=== PATIENT | male | born 1960 | race Caucasian/White ===

== ENCOUNTER 2017-07-06 21:53 | Observation (INO) | payer MEDICARE ==
[2017-07-06 22:36] LABS: INR-International Normal Ratio 0.9; PTT 27.2 SEC (22.9-36.1); Prothrombin Time 12.4 SEC (12.0-14.7)
[2017-07-06 22:42] LABS: #Basophils 0.1 thou/uL (0.0-0.2); #Eosinphils 0.2 thou/uL (0.0-0.7); #Lymphocytes 2.6 thou/uL (1.20-3.40); #Neutrophils 4.6 thou/uL (1.40-6.50); %Basophils 0.7 % (0.0-1.0); %Eosinophils 2.9 % (0.0-10.0); %Lymphocytes 30.3 % (21.0-51.0); %Monocytes 11.5 % (0.0-10.0); %Neutrophils 54.6 % (42.0-75.0); Hemoglobin 13.7 g/dL (14.0-18.0); Mean Corpuscular HGB CONC 34.7 g/dL (32.0-36.0); Mean Corpuscular Hemoglobin 34.9 pg (27.0-31.0); Mean Platelet Volume 7.2 fL (7.4-10.4); Platelet Count 243 thou/uL (130-400); RBC Distribution Width 11.1 % (11.5-14.5); Red Blood Cell (RBC) Count 3.93 mill/uL (4.70-6.10); White Blood Cell (WBC) Count 8.5 thou/uL (4.8-10.8)
[2017-07-06 22:52] LABS: ALT (SGPT) 23 U/L (8-55); AST (SGOT) 26 U/L (5-34); Albumin 3.6 g/dL (3.5-5.0); Alkaline Phosphatase 122 U/L (40-150); Anion Gap 9 mmol/L (10-20); BUN (Urea Nitrogen) 18 mg/dL (8.4-25.7); Bilirubin, Total 0.8 mg/dL (0.2-1.2); CK (CPK) 64 U/L (30-200); Calc. Creatinine Clearance 0 mL/min (70-130); Calcium 8.7 mg/dL (7.8-10.44); Carbon Dioxide 28 mmol/L (22-29); Chloride 107 mmol/L (98-107); Estimated GFR-MDRD Greater than 90; Globulin 2.7 g/dL (2.4-3.5); Glucose 91 mg/dL (70-105); Lipase 14 U/L (8-78); Potassium 3.9 mmol/L (3.5-5.1); Protein, Total 6.3 g/dL (6.0-8.3); Sodium 140 mmol/L (136-145)
[2017-07-06 22:54] LABS: Troponin I Less than 0.010 ng/mL (< 0.028)
--- NOTE | 2017-07-06 23:01 | RAD ---
PORTABLE CHEST: 07/06/17 HISTORY: Chest pain. COMPARISON: 04/25/15 study. Heart size is within normal limits for portable technique. The lungs are clear of infiltrates. A dors al column stimulator is present. IMPRESSION: No active intrathoracic disease. POS: [facility]
[2017-07-06] MEDS ORDERED: Enoxaparin Sodium 100 MG/ML SYRINGE ONE (23:54)
[2017-07-07 02:15] LABS: Cardiac Risk 4.1 (Less than 4.5)
[2017-07-07 02:19] LABS: Troponin I Less than 0.010 ng/mL (< 0.028)
[2017-07-07 05:21] LABS: Troponin I Less than 0.010 ng/mL (< 0.028)
[2017-07-07 06:56] VITALS: BMI 27.4
[2017-07-07] MEDS ORDERED: Acetaminophen 325 MG TAB PO PRN (07:14)
[2017-07-07] MEDS ORDERED: [UNRECOGNIZED DRUG - OTHER] PO PRN (08:15)
[2017-07-07] MEDS ORDERED: ACETAMINOPHEN PO PRN (08:15)
[2017-07-07] MEDS ORDERED: clonazePAM 1 MG TAB PO PRN (08:15)
[2017-07-07] MEDS ORDERED: OXYCODONE HCL PO PRN (08:15)
[2017-07-07] MEDS ORDERED: Nitroglycerin 0.4 MG TAB (25 Tab Bottle) PO PRN (08:16)
[2017-07-07] MEDS ORDERED: oxyCODONE/Acetaminophen 5 mg/325 mg Tablet PO PRN (08:33)
[2017-07-07] MEDS ORDERED: Heparin 5,000 UNITS/ML VIAL SC SCH (09:00)
[2017-07-07] MEDS ORDERED: Pregabalin 75 MG CAP PO SCH (09:00)
[2017-07-07] MEDS ORDERED: Aspirin 325 MG TAB PO SCH (09:00)
[2017-07-07 12:11] VITALS: BP 114/55; TEMP 98
--- NOTE | 2017-07-07 12:18 | HP ---
PRIMARY CARE PHYSICIAN: None. PRESENTING COMPLAINT: Chest pain. HISTORY OF PRESENT ILLNESS: The patient is a 56-year-old male, Mr. Kayden Joe, who presented to the emergency room with intermittent chest pain described as pressure/throbbing, 8-9/10, substernal, does not radiate, but is associated with nausea and vomiting, throat tightening, and groin pain. He has no palpitations, PND, orthopnea, shortness of breath, cough, or chest congestion. He reports that his symptoms have worsened from 5 days ago after he was started on Abilify and pain would increase about 10 minutes after he took the medication. Last night, he had an episode which was excruciating and then decided to present to the emergency room. He has had a stress test done about 6 months ago (11/2016) by Dr. Garcia, which showed a normal stress test. At the emergency room, he was hemodynamically stable. EKG done showed no signs of acute ischemia and he had an initial troponin done which was negative. He was then admitted to rule out ACS. PAST MEDICAL HISTORY: GERD, Crohn's disease, history of two DVTs status post IVC filter. PAST SURGICAL HISTORY: Status post IVC filter placement, right knee replacement , left hip replacement and bilateral hernia including umbilical surgeries. FAMILY AND SOCIAL HISTORY: Does not drink alcohol or smoke cigarettes. Denies illicit drug use. ALLERGIES: None. REVIEW OF SYSTEMS: Constitutional: Negative for fevers, chills, malaise. Eyes : Negative. HEENT: Denies headaches, nasal congestion. Cardiovascular: Positive for chest pain. For details, see HPI. Respiratory: Negative for shortness of breath, cough, sputum production. Gastrointestinal: Negative. Genitourinary: Negative. Musculoskeletal: Positive for lower back pain. Skin : Negative for skin changes or rashes. Hematology: Negative. Neurologic: Negative. Psychiatric: Negative. PHYSICAL EXAMINATION: GENERAL: Middle-aged man, not in any acute distress, lying comfortably in bed. HEENT: Normocephalic, atraumatic. Oral mucosa is moist. Anicteric, not pale. EOMI. PERRLA. CARDIOVASCULAR: S1 and S2 only. No murmurs, rubs, or gallops. RESPIRATORY: Vesicular breath sounds bilaterally. No wheezes or rales. ABDOMEN: Soft, bowel sounds present. No organomegaly. Nontender, not distended. GENITOURINARY: Deferred. MUSCULOSKELETAL: Moves all extremities spontaneously. No edema. SKIN: Warm and well perfused. No rashes or skin lesions. NEUROLOGIC: Alert and oriented with no focal deficits. LABORATORY DATA: CBC was largely unremarkable, CMP as well. Troponin was trended and was negative. Lipid profile showed total cholesterol of 171 with triglycerides of 118 and LDL of 105. Lipase was 14. INR was 0.9. EKG shows no signs of acute ischemia. Chest x-ray had no acute pathology. ASSESSMENT AND PLAN: Chest pain. The patient seems to have stable angina and a recent stress test which albeit 6 months ago showed normal. He has been admitted to rule out acute coronary syndrome. PLAN: Admit to tele. Cardiology consult ordered, exercise stress test, nitroglycerin p.r.n. for chest pain, IV morphine p.r.n. for chest pain. For his Crohn's disease, we will continue his home medication. He also has a history of anxiety and depression for which he was started on Abilify recently. We will hold Abilify as the patient is attributing this to his symptoms. We will place him on low dose lorazepam p.o. p.r.n. for anxiety/agitation. CODE STATUS: FULL CODE. MTDD
[2017-07-07] MEDS ORDERED: Aripiprazole 10 MG TAB PO SCH (21:00)
[2017-07-07] MEDS ORDERED: ARIPIPRAZOLE 2.5 MG PO SCH (21:00)
--- NOTE | 2017-07-08 06:34 | DIS ---
DATE OF ADMISSION: 07/07/2017 DATE OF DISCHARGE: 07/07/2017 DISCHARGE DIAGNOSIS: Chest pain. SECONDARY DIAGNOSES: Deep venous thrombosis x2, Crohn's disease, chronic back pain, and anxiety/depression. HOSPITAL COURSE: A 56-year-old male who presented to the emergency room with intermittent chest pain described as a pressure/throbbing, 8 to 9/10, substernal , does not radiate and was associated with nausea and vomiting, throat tightening, and groin pain. He had no palpitations, PND, orthopnea, shortness of breath, cough or chest congestion. He reports that his symptoms worsened about 5 days ago when he was started on Abilify for his anxiety/depression. Pain would increase about 10 minutes after each time he took the medication. Last night, he had an excruciating episode and decided to present to the emergency room. He had a stress test done about 6 months ago in 11/2016, which showed normal stress test. At the emergency room today, he was hemodynamically stable. EKG showed no signs of acute ischemia and he had serial troponins trended, which were negative. He was admitted to rule out ACS. 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 The importance of the test was stressed to the patient, but the patient stated that he was chest pain free now and we will follow up with his windows server architect. Refused to see the windows server architect here. He was discharged on aspirin, sublingual nitroglycerin and his home medications. He was advised to return to the emergency room if he had any episode of chest pain, shortness of breath, nausea, or loss of consciousness or lightheadedness. DISCHARGE MEDICATIONS: Aspirin 81 mg daily, clonazepam 1 mg p.o. daily, fentanyl 25 mcg q.3 days, sublingual nitroglycerin 0.4 mg p.o. q.5 minutes p.r.n. for chest pain, oxycodone 1 tablet each p.o. t.i.d. p.r.n. for pain, pregabalin 150 mg p.o. t.i.d. PHYSICAL EXAMINATION: Refer to today's history and physical. LABORATORY DATA: CBC and CMP were largely unremarkable. Troponins trended and were less than 0.010. CONDITION AT DISCHARGE: Stable and improved. PROCEDURES: None. DIET: Heart healthy. CARE GOALS: The patient is to follow up with his windows server architect within 5 days of discharge. ACTIVITY: To resume as tolerated. Time of discharge 65 minutes. MTDD
--- NOTE | 2017-07-10 12:09 | EKG ---
Test Reason : Blood Pressure : / mmHG Vent. Rate : 067 BPM Atrial Rate : 067 BPM P-R Int : 192 ms QRS Dur : 084 ms QT Int : 406 ms P-R-T Axes : 026 008 024 degrees QTc Int : 429 ms Normal sinus rhythm Anteroseptal infarct , age undetermined Abnormal ECG Confirmed by SHELLY FERRO, KESHIA ([id number]), medical editor JENELLE BEDOLLA ([id number]) on 07/10/2017 12:08:39 PM Referred By: Confirmed By:KESHIA BRAVO MD
== END 2017-07-07 15:12 | disposition home or self-care (01) ==
LOC: ERS 21:53 → ERHOLD 07-07 02:56 → 2SW 07-07 06:43
PROVIDERS: ADMIT Family Medicine; ATTEND Family Medicine
DX: R07.2 Precordial pain (principal); K50.90 Crohn's disease, unspecified, without complications; G89.29 Other chronic pain; M54.9 Dorsalgia, unspecified; F41.9 Anxiety disorder, unspecified; F32.9 Major depressive disorder, single episode, unspecified; K21.9 Gastro-esophageal reflux disease without esophagitis; Z86.718 Personal history of other venous thrombosis and embolism; Z79.82 Long term (current) use of aspirin; Z79.899 Other long term (current) drug therapy; Z95.820 Peripheral vascular angioplasty status with implants and grafts; Z98.1 Arthrodesis status; Z96.642 Presence of left artificial hip joint; Z96.651 Presence of right artificial knee joint; Z90.49 Acquired absence of other specified parts of digestive tract; Z98.890 Other specified postprocedural states
CPT/HCPCS: 71045; 80053; 80061; 82550; 82553; 83690; 83880; 84484 ×3; 85025; 85610; 85730; 93005; 96360; 96372; 99285; G0378; 36415; J1650

== ENCOUNTER 2018-03-01 08:01 | Outpatient (CLI) | payer MEDICARE ==
[2018-02-28 12:12] VITALS: BMI 26.3
--- NOTE | 2018-03-01 12:12 | RAD ---
LUMBAR MYELOGRAM: History: Lumbar radiculopathy. Comparison: None. FINDINGS: Two views lumbar spine demonstrates fusion change at the lumbosacral junction. Right hip prosthesis i s incompletely evaluated. Dorsal column stimulator generator with two leads orienting in a cephalad d irection are noted. These appear to macdonald the central spinal, canal at approximately the T12-L1 leve l. IVC filter is noted. Successful lumbar puncture. Total of 10 cc of Isovue 200M contrast was administered intrathecally. Neymar sampson tolerated the procedure well. No immediate or post procedure complications. Technique: Consent obtained to perform a lumbar puncture for intrathecal contrast administration. The patient's back was evaluated. The L3-4 level was deemed appropriate. Patient was prepped in standard sterile fa shion and 1% Lidocaine, buffered with sodium bicarbonate, used for local anesthesia. Under fluoroscop ic guidance, a 22 gauge spinal needle was advanced into the CSF space. There was prompt flow of clear CSF to the hub of the needle. Via a short tubing catheter, a total of 10 cc of Isovue M200 contrast was administered intrathecally. Patient tolerated the procedure well. No immediate or post procedure complication. IMPRESSION: Successful lumbar puncture for intrathecal contrast administration. Please refer to post myelogram [facility] spine CT for further detail. POS: [facility]
--- NOTE | 2018-03-01 13:46 | CT ---
LUMBAR SPINE CT: Date: 03/01/18 HISTORY: Lumbar radiculopathy. Lumbar fusion. Dorsal column stimulator. COMPARISON: 01/25/18. TECHNIQUE: Post myelogram lumbar spine CT is performed in the axial plane. Reformatted images are submitted for interpretation. FINDINGS: There are five lumbar-type vertebral bodies. There are stable bilateral transpedicular screws at L5 a nd S1. No perihardware lucency. Note is made of an IVC filter. Conus medullaris terminates at the T12-L1 disc space level. Dorsal column stimulators are noted entering the central spinal canal at the T12 level. T11-T12: No significant central canal stenosis or foraminal narrowing. T12-L1: No significant central canal stenosis or foraminal narrowing. L1-L2: No significant central canal stenosis. Neural foramina are patent. L2-L3: No significant central canal stenosis. Neural foramina are patent. L3-L4: No significant central canal stenosis. Neural foramina are patent. L4-L5: Posterior decompression. No significant central canal stenosis. Neural foramina are patent. L5-S1: Posterior decompression. No significant central canal stenosis. Right neural foramen is patent. Left neural foramen also appears to be patent. The suggestion of abnormal soft tissue density in the left neural foramen on previous CT is not evident. The soft tissue density suggested on the recent CT mayb e the exiting left L5 nerve root. Subarticular zones are unremarkable bilaterally. IMPRESSION: No significant central canal stenosis or foraminal narrowing. POS: [facility]
== END 2018-03-01 11:20 | disposition home or self-care (01) ==
LOC: RAD 08:01
PROVIDERS: ATTEND Neurological Surgery
DX: M54.16 Radiculopathy, lumbar region (principal)
CPT/HCPCS: 62304; 72132

== ENCOUNTER 2018-12-19 19:54 | Emergency (ER) | payer MEDICARE ==
[2018-12-19] MEDS ORDERED: Gabapentin 300 MG CAP PO SCH (21:15)
== END 2018-12-19 21:25 | disposition home or self-care (01) ==
LOC: ERS 19:54
DX: M54.5 Low back pain (principal); M25.552 Pain in left hip; M79.605 Pain in left leg; G89.29 Other chronic pain; K21.9 Gastro-esophageal reflux disease without esophagitis; Z86.718 Personal history of other venous thrombosis and embolism; F41.9 Anxiety disorder, unspecified; F32.9 Major depressive disorder, single episode, unspecified; Z79.899 Other long term (current) drug therapy
CPT/HCPCS: 99283

== ENCOUNTER 2018-12-27 10:18 | Day surgery (SDC) | payer MEDICARE ==
[2018-12-26 11:13] VITALS: BMI 26.4
[2018-12-27] MEDS ORDERED: Sodium Chloride 0.9% 100 ML ONE (11:06)
[2018-12-27] MEDS ORDERED: CEFAZOLIN 1 GM VIAL ONE (11:06)
[2018-12-27] MEDS ORDERED: Bupivacaine 0.25% HCL 30 ML VIAL ONE (13:39)
[2018-12-27] MEDS ORDERED: Bupivacaine HCl 0.5%/Epinephrine 1:200,000/PF 30 ml Vial ONE (13:44)
[2018-12-27] MEDS ORDERED: Midazolam HCl 2 mg/2 ml Vial ONE (13:45)
[2018-12-27] MEDS ORDERED: Fentanyl 100 MCG/2 ML VIAL ONE ×2 (13:45→17:28)
[2018-12-27] MEDS ORDERED: Propofol 1,000 MG/100 ML VIAL IV ONE ×2 (13:46→15:19)
[2018-12-27] MEDS ORDERED: Sodium Chloride 0.9% 20 ML ONE (15:43)
--- NOTE | 2018-12-27 16:30 | RAD ---
XR Lumbar Spine 2 Or 3 View History: Pain stimulator placement Comparison: None. Findings: Multiple spot images were obtained from the operating room. Impression: Fluoroscopy for surgical purposes. Total fluoroscopy time: 1012.5 seconds
--- NOTE | 2018-12-28 00:09 | OP ---
DATE OF PROCEDURE: 12/27/2018 PREOPERATIVE DIAGNOSES: 1. Chronic pain syndrome. 2. Complex regional pain syndrome, G57.72. 3. Post-laminectomy syndrome. POSTOPERATIVE DIAGNOSES: 1. Chronic pain syndrome. 2. Complex regional pain syndrome, G57.72. 3. Post-laminectomy syndrome. PROCEDURE PERFORMED: Removal of old SCS generator. Removal of old electrodes x2. Placement of DRG electrodes x4 at left L1, L2, L4 and S1. Placement of new pulse generator. SPECIMENS REMOVED: 1. Old SCS generator, intact. 2. SCS leads x2, intact. ESTIMATED BLOOD LOSS: 50 mL. PROCEDURE: The patient was taken to the procedure room and placed prone on the procedure room table. A time-out was performed. The back was prepped with DuraPrep and sterile drapes were applied. We anesthetized the skin over the pulse generator as well as the anchors with 0.5% Marcaine with epinephrine. We made an incision using a 10 blade scalpel and bluntly dissected this down to the pocket and down to the anchors respectively. We dissected the battery out of the pocket, removed this and then loosen them from the leads. Then the anchors were removed by blunt dissection and once anchors were removed, these were gently pulled on and taken out of the epidural space and the lead came out intact. We anesthetized the skin and used a right paramedian technique to target the L1 foramina on the left. We engaged in ligamentum flavum, used loss of resistance to air. Once inside the epidural space, we aspirated, this was negative for heme. There was no paresthesia felt. We inserted the DRG electrode, which is with the sheath and advanced it to the left L1 foramen. We gently pushed this through the L1 foramen and then took the sheath out taking care not to remove the electrode at the same time. We then secured the lead in place with a double loop in the epidural space. The sheath and needle were removed, keeping the leads in place. Lateral and AP views were taken of this. The same procedure was conducted for the left L2 foramen, the left L4 foramen and the left S1 foramen. The tunneling device was used to make a tunnel between all 4 electrodes in the previous pocket. These leads were brought through to the pocket. They were connected to the new pulse generator. This was placed inside the pocket. All fascial layers were closed with 2-0 Vicryl suture including the needle insertion points. We then used a 3-0 repeat Vicryl stitch in a subcuticular fashion for the skin. Dermabond was placed as an occlusive dressing and the patient was taken to PACU under stable condition without any apparent complications noted at this time. Job ID: [id number]
== END 2018-12-27 18:00 | disposition home or self-care (01) ==
LOC: SDC 10:18
PROVIDERS: ATTEND Specialist
PROC: 0JH70MZ Insertion of Stimulator Generator into Back Subcutaneous Tissue and Fascia, Open Approach (ICD-10-PCS; principal; 2018-12-27)
PROC: 00HU3MZ Insertion of Neurostimulator Lead into Spinal Canal, Percutaneous Approach (ICD-10-PCS; 2018-12-27)
DX: G89.4 Chronic pain syndrome (principal); G57.72 Causalgia of left lower limb; M96.1 Postlaminectomy syndrome, not elsewhere classified; F41.0 Panic disorder [episodic paroxysmal anxiety]; F32.9 Major depressive disorder, single episode, unspecified; M19.90 Unspecified osteoarthritis, unspecified site; K21.9 Gastro-esophageal reflux disease without esophagitis; Z79.891 Long term (current) use of opiate analgesic; Z79.899 Other long term (current) drug therapy; Z88.5 Allergy status to narcotic agent; Z88.8 Allergy status to other drugs, medicaments and biological substances
CPT/HCPCS: 72100; 76000; C1767; J0670; J0690; J2250; J2704; J3010; J3490; S0020

== ENCOUNTER 2019-11-28 06:03 | Outpatient (CLI) | payer MEDICARE, OTHER ==
--- NOTE | 2019-11-28 13:19 | RAD ---
EXAM: Chest 2 views: HISTORY: Preoperative radiograph COMPARISON: 04/27/2018 FINDINGS: There is a normal-sized cardiomediastinal silhouette. There is no evidence of consolidation, mass, or pleural effusion. Bones are unremarkable. IMPRESSION: No evidence of acute cardiopulmonary disease
[2019-11-28 16:27] LABS: Hemoglobin 15.6 g/dL (14.0-18.0); Mean Corpuscular HGB CONC 33.7 g/dL (32.0-36.0); Mean Corpuscular Hemoglobin 33.5 pg (27.0-31.0); Mean Corpuscular Volume 99.4 fL (78.0-98.0); Mean Platelet Volume 7.4 fL (7.4-10.4); Platelet Count 244 thou/uL (130-400); RBC Distribution Width 11.7 % (11.5-14.5); Red Blood Cell (RBC) Count 4.65 mill/uL (4.70-6.10); White Blood Cell (WBC) Count 7.1 thou/uL (4.8-10.8)
[2019-11-28 16:42] LABS: Prothrombin Time 13.1 sec (12.0-14.7)
[2019-11-28 16:43] LABS: Anion Gap 12 mmol/L (10-20); BUN (Urea Nitrogen) 19 mg/dL (8.4-25.7); Calc. Creatinine Clearance 0 mL/min (70-130); Calcium 8.9 mg/dL (7.8-10.44); Carbon Dioxide 25 mmol/L (22-29); Chloride 106 mmol/L (98-107); Estimated GFR-MDRD 84; Glucose 100 mg/dL (70-105); PTT 30.8 sec (22.9-36.1); Sodium 139 mmol/L (136-145)
[2019-11-28 16:48] LABS: Bacteria/HPF None Seen HPF (None Seen); Bilirubin Negative (Negative); Blood, Urine Trace (Negative); Clarity Clear (Clear); Glucose, Urine (Dipstick) Normal (Negative); Leukocyte Negative Leu/uL (Negative); Nitrite Negative (Negative); Protein, Urine (Dipstick) 10 mg/dL (Neg-Trace); RBC/HPF 0-3 HPF (0-3); Squamous Epithelial None Seen HPF (0-3); Urobilinogen Normal mg/dL (Less than 2); WBC/HPF 0-3 HPF (0-3)
[2019-11-29 13:50] LABS: SARS-CoV-2 MS2 Positive; SARS-CoV-2 N Gene Negative; SARS-CoV-2 S Gene Negative; SARS-CoV-2 orf1ab Negative
== END 2019-11-28 06:04 | disposition home or self-care (01) ==
LOC: LABBT 06:03
PROVIDERS: ATTEND Urology
DX: Z01.818 Encounter for other preprocedural examination (principal); Z11.59 Encounter for screening for other viral diseases; N20.0 Calculus of kidney; K50.919 Crohn's disease, unspecified, with unspecified complications; G89.4 Chronic pain syndrome; E29.1 Testicular hypofunction; Z86.718 Personal history of other venous thrombosis and embolism
CPT/HCPCS: 71046; 80048; 81001; 85027; 85610; 85730; 87086; U0003; 87635; 93005; 93010

== ENCOUNTER 2019-12-01 06:35 | Day surgery (SDC) | payer MEDICARE ==
[2019-11-27 13:21] VITALS: BMI 27.1
[2019-12-01] MEDS ORDERED: B & O ONE (09:11)
[2019-12-01] MEDS ORDERED: Iopamidol 50 ML FS ONE (09:11)
[2019-12-01] MEDS ORDERED: Levofloxacin 500 mg/D5W 100 ml Premix Bag ONE (09:27)
[2019-12-01] MEDS ORDERED: Enoxaparin Sodium 40 MG/0.4 ML SYRINGE SC SCH ×2 (09:30→09:45)
[2019-12-01] MEDS ORDERED: Fentanyl 100 MCG/2 ML VIAL ONE ×4 (09:31→12:27)
[2019-12-01] MEDS ORDERED: PROPOFOL 200 MG/20 ML VIAL ONE (11:00)
[2019-12-01] MEDS ORDERED: EPHEDRINE 25 MG/5 ML SYRINGE ONE (11:00)
[2019-12-01] MEDS ORDERED: Lidocaine 1% PF 5 ML VIAL ONE (11:00)
[2019-12-01] MEDS ORDERED: Ondansetron PF 4 MG/2 ML Vial ONE (11:00)
[2019-12-01] MEDS ORDERED: Rocuronium Bromide 10 MG/ML (10ML VIAL) ONE (11:00)
[2019-12-01] MEDS ORDERED: Oxybutynin 5 MG TAB ONE (11:03)
[2019-12-01] MEDS ORDERED: Phenazopyridine HCl 97.5 MG TABLET ONE (11:03)
--- NOTE | 2019-12-01 11:41 | OP ---
DATE OF PROCEDURE: 12/01/2019 SERVICE: Urology. PREOPERATIVE DIAGNOSIS: Left renal stones. POSTOPERATIVE DIAGNOSIS: Left renal stones. PROCEDURES PERFORMED: 1. Left ureteroscopy. 2. Laser lithotripsy. 3. Basket extraction of stones. 4. Placement of 6 x 26 double-J stent. INDICATIONS FOR PROCEDURE: Mr. Portillo is a 58-year-old white male who has a history of nephrolithiasis on CT. He has passed his ureteral stone, but has 2 additional left renal stones, measuring 6 mm. He did not want to try and pass these on his own, so we discussed prophylactic ureteroscopy, which he agreed too. Risks and benefits were discussed and he has agreed to proceed forward. DESCRIPTION OF PROCEDURE: After identification of armband and verification of consent, the patient was brought back to the operating room where he underwent general anesthesia with endotracheal intubation. He was then placed in dorsal lithotomy position and prepped and draped in the usual sterile fashion. After appropriate time-out, a lubricated 22-Somali rigid cystoscope was introduced per urethra into the bladder. Attention was turned to the left ureteral orifice, which was cannulated with a 0.035 Sensor wire up to the level of the renal pelvis. The cystoscope was then removed and a dual-lumen catheter was advanced over the Sensor wire up to the level of the proximal ureter. An Amplatz Super Stiff wire was then placed through the second lumen up to the level of renal pelvis. The dual-lumen was then removed and an 11/13 x 46 cm ureteral access sheath was advanced over the Super Stiff wire up to the level of the proximal ureter. The inner cannula and the Super Stiff wire were then removed, leaving the outer sheath in place and the Sensor wire in place as a safety wire. A flexible digital ureteroscope was then passed along the ureteral access sheath into the proximal ureter and then into the renal pelvis. A full calycopyeloscopy was performed, which demonstrated a stone in the mid pole as well as the lower pole. The larger stone being in the lower pole, both measuring between about 6 to 7 mm. There was an additional very small calcification, one additional calyx. Using a 273 micron ball-tip laser fiber, the very small stone was just fragmented into powder. The remaining stones were fragmented in smaller pieces. The lower pole stone was repositioned into the upper pole and then lasered into smaller pieces using 1.9-[employer] basket. All fragments were removed. Upon final pyeloscopy, there was only dust granules and no stone fragments remaining over 1 mm. I was very pleased with complete stone removal. Pull-back ureteroscopy was employed and no additional stones were found within the ureter. However, he did have some mucosal splitting at 2 points, which were relatively short. As such, we will plan to leave a stent in for 2 weeks instead of 1 week to allow for proper healing and avoidance of strictures. The ureteroscope and sheath were then completely removed and a cystoscope was back-loaded over the Sensor wire back into the bladder. A 6 x 26 double-J stent was advanced over the Sensor wire up to the level of renal pelvis where the wire was removed, leaving a good curl in the kidney and a good curl in the bladder. The bladder was emptied and the cystoscope removed. The patient had B and O suppository placed in his rectum. He was taken out of positioning, awakened, taken to PACU for recovery in stable condition. COMPLICATIONS: None. ESTIMATED BLOOD LOSS: Minimal. RETAINED TUBES AND DRAINS: A 6 x 26 double-J stent on the left. SPECIMENS: Stone for stone analysis. DISPOSITION: The patient will be discharged home and follow up with me in 2 weeks for cystoscopy and stent removal. Job ID: [id number]
--- NOTE | 2019-12-01 12:58 | RAD ---
RETROGRADE PYELOGRAM 9 IMAGES: HISTORY: Stent placement. FINDINGS: This is the series of imaging showing a left ureteral stent being placed. IMPRESSION: Imaging showing stent placement. POS: [facility]
== END 2019-12-01 13:20 | disposition home or self-care (01) ==
LOC: SDC 06:35
PROVIDERS: ATTEND Urology
PROC: 0TC48ZZ Extirpation of Matter from Left Kidney Pelvis, Via Natural or Artificial Opening Endoscopic (ICD-10-PCS; principal; 2019-12-01)
PROC: 0T778DZ Dilation of Left Ureter with Intraluminal Device, Via Natural or Artificial Opening Endoscopic (ICD-10-PCS; 2019-12-01)
DX: N20.0 Calculus of kidney (principal); K50.919 Crohn's disease, unspecified, with unspecified complications; G89.4 Chronic pain syndrome; E29.1 Testicular hypofunction; T40.605A Adverse effect of unspecified narcotics, initial encounter; M19.90 Unspecified osteoarthritis, unspecified site; F41.9 Anxiety disorder, unspecified; F32.9 Major depressive disorder, single episode, unspecified; M06.9 Rheumatoid arthritis, unspecified; K21.9 Gastro-esophageal reflux disease without esophagitis; F41.0 Panic disorder [episodic paroxysmal anxiety]; Z86.718 Personal history of other venous thrombosis and embolism; Z87.891 Personal history of nicotine dependence; Z79.01 Long term (current) use of anticoagulants; Z79.899 Other long term (current) drug therapy; Z88.5 Allergy status to narcotic agent
CPT/HCPCS: 74420; 82365; 88300; J1650; J1956; J2001; J2405; J2704; J3010; Q9967

== ENCOUNTER 2019-12-25 07:26 | Outpatient (CLI) | payer MEDICARE, OTHER ==
[2019-12-26 12:22] LABS: SARS-CoV-2 MS2 Positive; SARS-CoV-2 N Gene Negative; SARS-CoV-2 S Gene Negative; SARS-CoV-2 orf1ab Negative
== END 2019-12-25 07:27 | disposition home or self-care (01) ==
LOC: LABBT 07:26
PROVIDERS: ATTEND Specialist
DX: Z01.812 Encounter for preprocedural laboratory examination (principal); Z11.59 Encounter for screening for other viral diseases; G57.72 Causalgia of left lower limb; G89.4 Chronic pain syndrome
CPT/HCPCS: 87635; U0003

== ENCOUNTER 2019-12-28 13:13 | Day surgery (SDC) | payer MEDICARE ==
[2019-12-22 10:58] VITALS: BMI 26.4
[2019-12-28] MEDS ORDERED: CEFAZOLIN 1 GM VIAL ONE (13:37)
[2019-12-28] MEDS ORDERED: Sodium Chloride 0.9% 100 ML ONE (13:37)
[2019-12-28] MEDS ORDERED: Bupivacaine PF 0.5% 30 ML VIAL ONE (13:56)
[2019-12-28] MEDS ORDERED: Fentanyl 100 MCG/2 ML VIAL ONE ×2 (13:56→17:46)
[2019-12-28] MEDS ORDERED: Propofol 1,000 MG/100 ML VIAL IV ONE (14:07)
[2019-12-28] MEDS ORDERED: Midazolam HCl 2 mg/2 ml Vial ONE (14:07)
[2019-12-28] MEDS ORDERED: PROPOFOL 200 MG/20 ML VIAL ONE (14:16)
[2019-12-28] MEDS ORDERED: methylPREDNISolone Acetate 40 mg/ml Vial ONE (15:24)
--- NOTE | 2019-12-28 16:57 | RAD ---
Exam: Intraprocedure fluoroscopy. HISTORY: Neurostimulator placement Exposure: 552 mGy FINDINGS: 7 fluoroscopic images demonstrate dorsal column stimulator projecting over the L4 at L3 lev el, assuming there are 5 lumbar type vertebra There are bilateral transpedicular screws at L5 and S1. There is also a lead projecting over the righ t aspect of the sacrum. IMPRESSION: Intraoperative fluoroscopy as as above
--- NOTE | 2019-12-29 01:46 | OP ---
DATE OF PROCEDURE: 12/28/2019 PREOPERATIVE DIAGNOSES: 1. Complex regional pain syndrome type 1. 2. Chronic pain syndrome. PROCEDURE PERFORMED: Spinal cord stimulator lead revision x3 with lead replacement. SPECIMENS REMOVED: Spinal cord stimulator leads x3 intact and discarded. ESTIMATED BLOOD LOSS: 10 mL. DESCRIPTION OF PROCEDURE: The patient was taken to the procedure room, placed prone on the procedure room table. A time-out was performed. The back was prepped with ChloraPrep. Sterile drapes were applied. We used 0.5% Marcaine to anesthetize the skin over the battery. An incision was made using a 10 blade scalpel. This was blunt dissected down to the battery pocket. The battery was removed, and a torque wrench was used to unscrew the leads from the battery. Once the leads were out, we placed the battery safely on the sterile table. We then gently removed the L2 lead under continuous fluoroscopy. Once the lead was taken out, we examined it and it was noted that there was a fracture of the lead which was approximately 1 cm. This lead was discarded. We then inserted a 14-gauge Rx Coude needle in a paramedian technique to engage in the ligament of L2-L3. Once engaged in the ligament under paramedian technique from the right, we gained access to the epidural space using loss of resistance to air. We then threaded the sheaths and the lead through the needle and advanced this into the epidural space and advanced this to the pedicle of L2. We then used continuous fluoro to watch the sheath advance out of the foramen. Once we were at this stage, we advanced the lead taking care not to move the sheath. The lead was advanced through the foramina onto the DRG. The sheath was then removed into the needle taking care not to remove the lead. A double loop was formed to secure the lead in place. The needle and the sheath were then removed. We performed the same procedure for L4 on the left and S1 on the left. The leads that were removed at L4 and S1 were intact. However, we were unable to place the stylet back into lead to reposition it. Therefore, we could not use these leads and had to use brand new leads. Once all this was performed, we checked impedances, which were all good. We used a tunneling device to tunnel the leads into the battery pocket. Once they were in the battery pocket, we connected it to the existing battery and used the torque wrench to secure them to the battery. Impedances were all checked, which were all good. We inserted the battery into the pocket. We approximated the fascia layers with 2-0 Vicryl in a horizontal mattress stitch. We then used simple interrupted 2-0 Vicryl stitches for the subcu layer and then a 3-0 Rapide Vicryl in a subcuticular stitch to approximate the skin. We used Dermabond as an occlusive dressing. Once this was dry, we placed a sterile 4x4s as well as Medipore tape on this. The patient was taken to the Day Stay under stable condition. Job ID: [id number]
== END 2019-12-28 18:15 | disposition home or self-care (01) ==
LOC: SDC 13:13
PROVIDERS: ATTEND Specialist
PROC: 00PU3MZ Removal of Neurostimulator Lead from Spinal Canal, Percutaneous Approach (ICD-10-PCS; principal; 2019-12-28)
PROC: 00HU3MZ Insertion of Neurostimulator Lead into Spinal Canal, Percutaneous Approach (ICD-10-PCS; 2019-12-28)
DX: G57.72 Causalgia of left lower limb (principal); G89.4 Chronic pain syndrome; M96.1 Postlaminectomy syndrome, not elsewhere classified; M47.26 Other spondylosis with radiculopathy, lumbar region; M46.1 Sacroiliitis, not elsewhere classified; T85.112A Breakdown (mechanical) of implanted electronic neurostimulator of spinal cord electrode (lead), initial encounter; F41.0 Panic disorder [episodic paroxysmal anxiety]; F32.9 Major depressive disorder, single episode, unspecified; K21.9 Gastro-esophageal reflux disease without esophagitis; K59.03 Drug induced constipation; Z87.891 Personal history of nicotine dependence; Z79.01 Long term (current) use of anticoagulants; Z79.899 Other long term (current) drug therapy; Z88.5 Allergy status to narcotic agent
CPT/HCPCS: 72100; 76000; J0690; J2250; J2704; J2920; J3010; J3490; S0020

== ENCOUNTER 2021-02-11 10:33 | Emergency (ER) | payer MEDICARE ==
[~2021-02-11 10:33] MED LIST: Iopamidol-370 76% 500 ML 1 ML ONE
[2021-02-11] MEDS ORDERED: HYDROmorphone 0.5 MG/0.5 ML SYRINGE ONE ×2 (11:37→14:12)
[2021-02-11 12:07] LABS: #Basophils 0.1 thou/uL (0.0-0.2); #Eosinphils 0.2 thou/uL (0.0-0.7); #Lymphocytes 1.9 thou/uL (1.20-3.40); #Monocytes 0.5 thou/uL (0.11-0.59); #Neutrophils 3.7 thou/uL (1.40-6.50); %Basophils 1.1 % (0.0-1.0); %Eosinophils 2.6 % (0.0-10.0); %Lymphocytes 30.5 % (21.0-51.0); %Monocytes 7.7 % (0.0-10.0); %Neutrophils 58.2 % (42.0-75.0); Mean Corpuscular Hemoglobin 34.8 pg (27.0-31.0); Mean Corpuscular Volume 99.5 fL (78.0-98.0); Mean Platelet Volume 7.1 fL (7.4-10.4); Platelet Count 255 thou/uL (130-400); RBC Distribution Width 11.4 % (11.5-14.5); Red Blood Cell (RBC) Count 4.01 mill/uL (4.70-6.10); White Blood Cell (WBC) Count 6.3 thou/uL (4.8-10.8)
[2021-02-11 12:35] LABS: ALT (SGPT) 20 U/L (8-55); AST (SGOT) 20 U/L (5-34); Albumin 3.7 g/dL (3.5-5.0); Alkaline Phosphatase 93 U/L (40-110); Anion Gap 11 mmol/L (10-20); BUN (Urea Nitrogen) 12 mg/dL (8.4-25.7); Bilirubin, Total 0.8 mg/dL (0.2-1.2); Calc. Creatinine Clearance 0 mL/min (70-130); Calcium 8.8 mg/dL (7.8-10.44); Carbon Dioxide 25 mmol/L (22-29); Chloride 107 mmol/L (98-107); Globulin 2.7 g/dL (2.4-3.5); Glucose 108 mg/dL (70-105); Protein, Total 6.4 g/dL (6.0-8.3); Sodium 139 mmol/L (136-145)
== END 2021-02-11 16:09 | disposition home or self-care (01) ==
LOC: ERS 10:33
DX: M54.32 Sciatica, left side (principal); G89.29 Other chronic pain; K21.9 Gastro-esophageal reflux disease without esophagitis; M19.90 Unspecified osteoarthritis, unspecified site; Z86.718 Personal history of other venous thrombosis and embolism; Z79.899 Other long term (current) drug therapy; Z79.01 Long term (current) use of anticoagulants
CPT/HCPCS: 36415; 72132; 80053; 85025; 96374; 96376; J1170; Q9967

== ENCOUNTER 2021-12-26 07:50 | Outpatient (CLI) | payer MEDICARE | END 2021-12-26 07:51 | disposition home or self-care (01) | LOC: NM 07:50 | PROVIDERS: ATTEND Orthopaedic Surgery | DX: T84.52XA Infection and inflammatory reaction due to internal left hip prosthesis, initial encounter (principal) | CPT/HCPCS: 78315; A9503; 36415; 85025; 85652; 86140 ==

== ENCOUNTER 2022-07-02 10:37 | Outpatient (CLI) | payer MEDICARE ==
[2022-07-02 12:26] LABS: Bilirubin Neg (Negative); Blood, Urine 250 (Negative); Clarity Slightly Cloudy (Clear); Glucose, Urine (Dipstick) Normal (Negative); Ketone, Urine 5 mg/dL (Negative); Leukocyte 25 (Negative); Nitrite Negative (Negative); Protein, Urine (Dipstick) 30 mg/dl (Neg-Trace); Specific Gravity, Urine 1.025 (1.005-1.030); Urobilinogen Normal mg/dL (Less than 2)
[2022-07-02 12:39] LABS: INR-International Normal Ratio 0.9; PTT 26.1 sec (22.0-33.0); Prothrombin Time 9.8 sec (9.5-12.1)
[2022-07-02 12:43] LABS: Anion Gap 13 mmol/L (10-20); BUN (Urea Nitrogen) 17 mg/dL (8.4-25.7); Calc. Creatinine Clearance 0 mL/min (70-130); Calcium 9.5 mg/dL (7.8-10.44); Carbon Dioxide 25 mmol/L (22-29); Chloride 105 mmol/L (98-107); Estimated GFR 84; Glucose 88 mg/dL (70-105); Potassium 4.4 mmol/L (3.5-5.1); Sodium 139 mmol/L (136-145)
[2022-07-02 12:49] LABS: Hemoglobin 15.5 g/dL (13.5-17.5); Mean Corpuscular HGB CONC 33.8 g/dL (32.0-36.0); Mean Corpuscular Hemoglobin 33.1 pg (27.0-33.0); Mean Corpuscular Volume 98.1 fl (81.2-95.1); Platelet Count 321 10x3/uL (150-450); Red Blood Cell (RBC) Count 4.68 10x6/uL (4.32-5.72); White Blood Cell (WBC) Count 6.7 10x3/uL (3.5-10.5)
[2022-07-02 13:09] LABS: Bacteria/HPF None Seen HPF (None Seen); Mucous/LPF 3+ LPF (<2+); RBC/HPF Greater than 50 HPF (0-3); Squamous Epithelial 0-3 HPF (0-3); WBC/HPF 0-3 HPF (0-3)
== END 2022-07-02 10:38 | disposition home or self-care (01) ==
LOC: LABBT 10:37
PROVIDERS: ATTEND Urology
DX: Z01.818 Encounter for other preprocedural examination (principal); N20.0 Calculus of kidney; K50.919 Crohn's disease, unspecified, with unspecified complications; E29.1 Testicular hypofunction; G89.4 Chronic pain syndrome; Z86.718 Personal history of other venous thrombosis and embolism
CPT/HCPCS: 80048; 81001; 85027; 85610; 85730; 87086; 93005; 93010

== ENCOUNTER 2022-07-16 09:47 | Day surgery (SDC) | payer MEDICARE ==
[2022-07-15 09:52] VITALS: BMI 28.3
[2022-07-16] MEDS ORDERED: Iopamidol 15 ML ONE (12:38)
[2022-07-16] MEDS ORDERED: fentaNYL PF 100 MCG/2 ML SYRINGE ONE (13:24)
[2022-07-16] MEDS ORDERED: Famotidine/PF 20 mg/2ml Vial ONE (13:35)
[2022-07-16] MEDS ORDERED: ePHEDrine 50 MG/ML VIAL ONE (13:43)
[2022-07-16] MEDS ORDERED: Dexamethasone 20 MG/5 ML VIAL ONE (13:43)
[2022-07-16] MEDS ORDERED: Lidocaine 1% PF 5 ML VIAL ONE (13:43)
[2022-07-16] MEDS ORDERED: PROPOFOL 200 MG/20 ML VIAL ONE (13:43)
[2022-07-16] MEDS ORDERED: Levofloxacin 500 mg/D5W 100 ml Premix Bag ONE (13:44)
== END 2022-07-16 16:01 | disposition home or self-care (01) ==
LOC: SDC 09:47
PROVIDERS: ATTEND Urology
PROC: 0TC68ZZ Extirpation of Matter from Right Ureter, Via Natural or Artificial Opening Endoscopic (ICD-10-PCS; principal; 2022-07-16)
PROC: 0TC08ZZ Extirpation of Matter from Right Kidney, Via Natural or Artificial Opening Endoscopic (ICD-10-PCS; 2022-07-16)
PROC: 0T768DZ Dilation of Right Ureter with Intraluminal Device, Via Natural or Artificial Opening Endoscopic (ICD-10-PCS; 2022-07-16)
DX: N20.2 Calculus of kidney with calculus of ureter (principal); N35.913 Unspecified membranous urethral stricture, male; K21.9 Gastro-esophageal reflux disease without esophagitis; M19.90 Unspecified osteoarthritis, unspecified site; K50.919 Crohn's disease, unspecified, with unspecified complications; G89.4 Chronic pain syndrome; E29.1 Testicular hypofunction; Z79.01 Long term (current) use of anticoagulants; Z79.899 Other long term (current) drug therapy; Z88.5 Allergy status to narcotic agent; Z88.6 Allergy status to analgesic agent; Z96.82 Presence of neurostimulator; Z86.718 Personal history of other venous thrombosis and embolism
CPT/HCPCS: 74420; 82365; 88300; C1758; C1769; C2617; J1100; J1956; J2704; J3490; Q9967; S0028

== ENCOUNTER 2023-10-28 07:48 | Outpatient (CLI) | payer MEDICARE | END 2023-10-28 07:49 | disposition home or self-care (01) | LOC: BICCT 07:48 | PROVIDERS: ATTEND Physician Assistant Medical | DX: K50.90 Crohn's disease, unspecified, without complications (principal); R10.32 Left lower quadrant pain; K59.03 Drug induced constipation; T40.2X5A Adverse effect of other opioids, initial encounter | CPT/HCPCS: 74177; 82565 ==

== ENCOUNTER 2024-12-06 11:33 | Outpatient (CLI) | payer MEDICARE ==
[2024-12-06 12:37] LABS: #Basophils 0.08 10x3/uL (0.0-0.2); #Eosinophils 0.26 10x3/uL (0.0-0.7); #Monocytes 0.49 10x3/uL (0.11-0.59); #Neutrophils 4.53 10x3/uL (1.40-6.50); %Basophils 1.1 % (0.0-1.0); %Eosinophils 3.5 % (0.0-10.0); %Lymphocytes 28.0 % (21.0-51.0); %Monocytes 6.5 % (0.0-10.0); %Neutrophils 60.4 % (42.0-75.0); Hematocrit 43.3 % (42.0-52.0); Hemoglobin 14.4 g/dL (14.0-18.0); Mean Corpuscular Hemoglobin 32.8 pg (27.0-31.0); Mean Corpuscular Volume 98.6 fL (78.0-98.0); Platelet Count 246 10x3/uL (130-400); Red Blood Cell (RBC) Count 4.39 mill/uL (4.70-6.10); White Blood Cell (WBC) Count 7.50 10x3/uL (4.8-10.8)
[2024-12-06 13:05] LABS: Anion Gap 13 mmol/L (10-20); BUN (Urea Nitrogen) 14 mg/dL (8.4-25.7); Calc. Creatinine Clearance 0 mL/min (70-130); Calcium 9.0 mg/dL (7.8-10.44); Carbon Dioxide 25 mmol/L (23-31); Chloride 107 mmol/L (98-107); Glucose 106 mg/dL (80-115); Potassium 4.2 mmol/L (3.5-5.1); Sodium 141 mmol/L (136-145)
[2024-12-06 14:53] LABS: Bacteria/HPF None Seen HPF (None Seen); Glucose, Urine (Dipstick) Normal (Negative); Leukocyte Negative Leu/uL (Negative); Protein, Urine (Dipstick) 10 mg/dL (Neg-Trace); RBC/HPF 21-50 HPF (0-3); Specific Gravity, Urine 1.037 (1.002-1.036); WBC/HPF 0-3 HPF (0-3)
== END 2024-12-06 11:34 | disposition home or self-care (01) ==
LOC: LABBT 11:33
PROVIDERS: ATTEND Urology
DX: Z01.818 Encounter for other preprocedural examination (principal); N20.0 Calculus of kidney
CPT/HCPCS: 80048; 81001; 85025; 87086; 93005; 93010

== ENCOUNTER 2025-03-12 10:14 | Outpatient (CLI) | payer MEDICARE | END 2025-03-12 10:15 | disposition home or self-care (01) | LOC: ULT 10:14 | PROVIDERS: ATTEND Urology | DX: N20.0 Calculus of kidney (principal) | CPT/HCPCS: 76770 ==